=== PATIENT | male | born 1975 | race Native Hawaiian/Other Pacific Islander ===

== ENCOUNTER 2018-03-14 11:37 | Emergency (ER) | payer OTHER ==
[2018-03-14 11:59] VITALS: BP 122/81
[2018-03-14] MEDS ORDERED: BENTYL IM ONE (14:20)
[2018-03-14] MEDS ORDERED: NORCO 7.5/325 PO ONE (14:20)
--- NOTE | 2018-03-14 14:20 | Emergency Department Report ---
ED N/V/D HPI - General Chief complaint: Nausea/Vomiting/Diarrhea Stated complaint: DIARRHEA FOR 3 DAYS, STOMACH PAIN Time Seen by Provider: 03/14/18 14:01 Source: patient Mode of arrival: Ambulatory Limitations: No Limitations - History of Present Illness Initial comments: Patient is a 42-year-old gentleman who is presenting with diarrhea for approximately 3 days. Patient has some crampy diffuse abdominal discomfort. Patient denies any nausea fever. Patient and family ate a steak and shake several days ago he thinks this may be the cause however he is only when this feeling ill. Pt states the pain is crampy in nature and 6 out of 10. Denies any bleeding in his stool Description of Diarrhea: water Associated Abdominal Pain: Yes Location: diffuse Severity: moderate Pain Scale: 5 Quality: cramping Consistency: constant Improves with: none Worsens with: none - Related Data Previous Rx's Medication Instructions Recorded Last Taken Type Ciprofloxacin HCl [Cipro] 500 mg PO BID #14 tablet 03/14/18 Unknown Rx Dicyclomine [Bentyl] 20 mg PO QID #12 tablet 03/14/18 Unknown Rx Diphenoxylate/Atropine [Lomotil] 1 tab PO Q4H PRN #10 tablet 03/14/18 Unknown Rx metroNIDAZOLE [Flagyl] 500 mg PO Q12HR #14 tab 03/14/18 Unknown Rx traMADol [Ultram] 50 mg PO Q6HR PRN #10 tablet 03/14/18 Unknown Rx Allergies Allergy/AdvReac Type Severity Reaction Status Date / Time No Known Allergies Allergy Unverified 03/14/18 11:59 ED Review of Systems ROS: Stated complaint: DIARRHEA FOR 3 DAYS, STOMACH PAIN Other details as noted in HPI Comment: All other systems reviewed and negative ED Past Medical Hx - Past Medical History Previous Medical History?: No - Surgical History Past Surgical History?: No - Social History Smoking Status: Never Smoker Substance Use Type: None - Medications Home Medications: Home Medications Medication Instructions Recorded Confirmed Last Taken Type Ciprofloxacin HCl [Cipro] 500 mg PO BID #14 tablet 03/14/18 Unknown Rx Dicyclomine [Bentyl] 20 mg PO QID #12 tablet 03/14/18 Unknown Rx Diphenoxylate/Atropine [Lomotil] 1 tab PO Q4H PRN #10 tablet 03/14/18 Unknown Rx metroNIDAZOLE [Flagyl] 500 mg PO Q12HR #14 tab 03/14/18 Unknown Rx traMADol [Ultram] 50 mg PO Q6HR PRN #10 tablet 03/14/18 Unknown Rx ED Physical Exam - General Limitations: No Limitations General appearance: alert, in no apparent distress - Head Head exam: Present: atraumatic, normocephalic - Eye Eye exam: Present: normal appearance - ENT ENT exam: Present: mucous membranes moist - Neck Neck exam: Present: normal inspection - Respiratory Respiratory exam: Present: normal lung sounds bilaterally. Absent: respiratory distress, wheezes, rales, rhonchi - Cardiovascular Cardiovascular Exam: Present: regular rate, normal rhythm. Absent: systolic murmur, diastolic murmur, rubs, gallop - GI/Abdominal GI/Abdominal exam: Present: soft, normal bowel sounds. Absent: distended, tenderness, guarding, rebound - Rectal Rectal exam: Present: deferred - Extremities Exam Extremities exam: Present: normal inspection - Back Exam Back exam: Present: normal inspection - Neurological Exam Neurological exam: Present: alert, oriented X3 - Psychiatric Psychiatric exam: Present: normal affect, normal mood - Skin Skin exam: Present: warm, dry, intact, normal color. Absent: rash ED Course Vital Signs 03/14/18 11:56 Temperature 98.5 F Pulse Rate 82 Respiratory 18 Rate Blood Pressure 122/81 O2 Sat by Pulse 96 Oximetry ED Medical Decision Making - Medical Decision Making Patient's be treated as a presumed food poisoning. Patient given meds here for symptomatic relief be discharged home with meds. Critical care attestation.: If time is entered above; I have spent that time in minutes in the direct care of this critically ill patient, excluding procedure time. ED Disposition Clinical Impression: Food poisoning Qualifiers: Encounter type: initial encounter Injury intent: accidental or unintentional Qualified Code(s): T62.91XA - Toxic effect of unspecified noxious substance eaten as food, accidental (unintentional), initial encounter Disposition: - TO HOME OR SELFCARE Is pt being admited?: No Does the pt Need Aspirin: No Condition: Stable Instructions: Food Poisoning (ED) Referrals: PRIMARY CARE, [Primary Care Provider] - 3-5 Days
== END 2018-03-14 14:46 | disposition home or self-care (01) ==
LOC: ED 11:37
DX: T62.8X1A Toxic effect of other specified noxious substances eaten as food, accidental (unintentional), initial encounter (principal); Y92.89 Other specified places as the place of occurrence of the external cause
CPT/HCPCS: 96372; 99282; J0500

== ENCOUNTER 2019-06-22 20:17 | Emergency (ER) | payer SELFPAY ==
[2019-06-22] MEDS ORDERED: ONDANSETRON 4 MG/2 ML INJ ONE (20:55)
[2019-06-22] MEDS ORDERED: MORPHINE 4 MG/1 ML INJ ONE (20:56)
[2019-06-22] MEDS ORDERED: ONDANSETRON 4 MG/2 ML INJ IV ONE (21:00)
[2019-06-22] MEDS ORDERED: MORPHINE 4 MG/1 ML INJ IV ONE (21:00)
[2019-06-22] MEDS ORDERED: KETOROLAC 30 MG/1 ML INJ IV ONE (21:33)
--- NOTE | 2019-06-22 21:38 | Emergency Department Report ---
ED Male HPI - General Chief complaint: Urogenital-Male Stated complaint: TESTICLE PAIN Time Seen by Provider: 06/22/19 21:26 Source: patient Mode of arrival: Ambulatory Limitations: No Limitations - History of Present Illness Initial comments: Patient is 43 years old male with no significant past medical history. Patient presented to the ER complaining of bilateral testicular pain and swelling for the last several weeks. Patient stated that he also noticed a small swelling on the top of the right testicular area. Patient denied any fever or chills. No recent trauma. He also denied any dysuria or penile discharge. MD Complaint: testicle pain, testicle swelling -: week(s) Location: right testicle, left testicle Severity: moderate Severity scale (0 -10): 6 - Related Data Previous Rx's Medication Instructions Recorded Last Taken Type Ciprofloxacin HCl [Cipro] 500 mg PO BID #14 tablet 03/14/18 Unknown Rx Dicyclomine [Bentyl] 20 mg PO QID #12 tablet 03/14/18 Unknown Rx Diphenoxylate/Atropine [Lomotil] 1 tab PO Q4H PRN #10 tablet 03/14/18 Unknown Rx metroNIDAZOLE [Flagyl] 500 mg PO Q12HR #14 tab 03/14/18 Unknown Rx traMADol [Ultram] 50 mg PO Q6HR PRN #10 tablet 03/14/18 Unknown Rx Allergies Allergy/AdvReac Type Severity Reaction Status Date / Time No Known Allergies Allergy Verified 06/22/19 20:23 ED Review of Systems ROS: Stated complaint: TESTICLE PAIN Other details as noted in HPI Comment: All other systems reviewed and negative Constitutional: denies: chills, fever Respiratory: denies: cough, shortness of breath, SOB with exertion, SOB at rest Cardiovascular: denies: chest pain Gastrointestinal: denies: abdominal pain, nausea Genitourinary: testicular pain. denies: urgency, dysuria, frequency, hematuria, discharge Musculoskeletal: denies: back pain Neurological: denies: headache ED Past Medical Hx - Past Medical History Previous Medical History?: No - Surgical History Past Surgical History?: No - Social History Smoking Status: Never Smoker Substance Use Type: None - Medications Home Medications: Home Medications Medication Instructions Recorded Confirmed Last Taken Type Ciprofloxacin HCl [Cipro] 500 mg PO BID #14 tablet 03/14/18 Unknown Rx Dicyclomine [Bentyl] 20 mg PO QID #12 tablet 03/14/18 Unknown Rx Diphenoxylate/Atropine [Lomotil] 1 tab PO Q4H PRN #10 tablet 03/14/18 Unknown Rx metroNIDAZOLE [Flagyl] 500 mg PO Q12HR #14 tab 03/14/18 Unknown Rx traMADol [Ultram] 50 mg PO Q6HR PRN #10 tablet 03/14/18 Unknown Rx ED Physical Exam - General Limitations: No Limitations General appearance: alert, in no apparent distress - Head Head exam: Present: atraumatic, normocephalic, normal inspection - Eye Eye exam: Present: normal appearance, PERRL - ENT ENT exam: Present: normal exam, normal orophraynx, mucous membranes moist - Neck Neck exam: Present: normal inspection, full ROM. Absent: tenderness, meningismus, lymphadenopathy, thyromegaly - Respiratory Respiratory exam: Present: normal lung sounds bilaterally - Cardiovascular Cardiovascular Exam: Present: regular rate, normal rhythm, normal heart sounds - GI/Abdominal GI/Abdominal exam: Present: soft, normal bowel sounds. Absent: distended, tenderness, guarding, rebound, rigid, mass, bruit, pulsatile mass, hernia - Extremities Exam Extremities exam: Present: normal inspection, full ROM, normal capillary refill. Absent: tenderness, pedal edema, calf tenderness - Back Exam Back exam: Present: normal inspection, full ROM. Absent: CVA tenderness (R), CVA tenderness (L), muscle spasm, paraspinal tenderness, vertebral tenderness - Neurological Exam Neurological exam: Present: alert, oriented X3, CN II-XII intact, normal gait, reflexes normal - Psychiatric Psychiatric exam: Present: normal mood - Skin Skin exam: Present: warm, intact, normal color ED Course Vital Signs 06/22/19 06/22/19 06/22/19 20:23 20:46 21:00 Temperature 98.5 F Pulse Rate 66 60 70 Respiratory 18 14 Rate Blood Pressure 138/64 123/79 Blood Pressure [Right] O2 Sat by Pulse 98 97 Oximetry 06/22/19 06/22/19 06/22/19 21:01 21:15 21:30 Temperature 98.6 F Pulse Rate 58 L 54 L 52 L Respiratory 11 L 14 16 Rate Blood Pressure 123/79 114/78 Blood Pressure 123/71 [Right] O2 Sat by Pulse 99 96 97 Oximetry 06/22/19 06/22/19 06/22/19 21:45 22:00 22:15 Temperature Pulse Rate 54 L 47 L 56 L Respiratory 17 14 15 Rate Blood Pressure 114/78 116/69 116/69 Blood Pressure [Right] O2 Sat by Pulse 95 98 Oximetry 06/22/19 06/22/19 06/22/19 22:30 22:45 23:00 Temperature Pulse Rate 59 L 56 L 55 L Respiratory 17 17 14 Rate Blood Pressure 108/59 108/59 109/68 Blood Pressure [Right] O2 Sat by Pulse 96 Oximetry ED Medical Decision Making - Lab Data Result diagrams: 06/22/19 21:39 06/22/19 21:39 - Radiology Data Radiology results: report reviewed - Medical Decision Making Patient is 43 years old male with no significant past medical history. Patient presented to the ER complaining of bilateral testicular pain and swelling for the last several weeks. Patient stated that he also noticed a small swelling on the top of the right testicular area. Patient denied any fever or chills. No recent trauma. He also denied any dysuria or penile discharge. Labs reviewed and is unremarkable. Testicular ultrasound show epididymitis. Patient received Toradol and he stated that his symptoms much better. Patient advised to follow-up with his primary care physician in the next 2-3 days and to attend to the ER if symptoms are not improved. Critical care attestation.: If time is entered above; I have spent that time in minutes in the direct care of this critically ill patient, excluding procedure time. ED Disposition Clinical Impression: Testicular pain, Epididymitis Disposition: - TO HOME OR SELFCARE Is pt being admited?: No Condition: Stable Instructions: Epididymitis (ED) Referrals: [facility] [Provider Group] - 3-5 Days Forms: STI Treatment and Prevention
[2019-06-22 22:04] LABS: Basophils % (Auto) 0.4 % (0.0-1.8); Eosinophils # (Auto) 0.1 K/mm3 (0.0-0.4); Eosinophils % (Auto) 2.2 % (0.0-4.3); Hematocrit 42.6 % (35.5-45.6); Hemoglobin 14.6 gm/dl (11.8-15.2); Lymphocytes # (Auto) 1.7 K/mm3 (1.2-5.4); Lymphocytes % (Auto) 28.5 % (13.4-35.0); Mean Corpuscular HGB Conc 34 % (32-34); Mean Corpuscular Volume 85 fl (84-94); Monocytes # (Auto) 0.6 K/mm3 (0.0-0.8); Monocytes % (Auto) 9.8 % (0.0-7.3); Platelet Count 184 K/mm3 (140-440); Red Blood Count 5.04 M/mm3 (3.65-5.03); Red Cell Distribution Width 13.8 % (13.2-15.2)
[2019-06-22 22:24] LABS: Alanine Aminotransferase 14 units/L (7-56); Albumin 3.4 g/dL (3.9-5); BUN/Creatinine Ratio 12; Blood Urea Nitrogen 13 mg/dL (9-20); Calcium 8.1 mg/dL (8.4-10.2); Hemolysis Index 15
[2019-06-22 22:31] LABS: Bilirubin,Direct < 0.2 mg/dL (0-0.2)
[2019-06-22 23:02] VITALS: BP 109/68
--- NOTE | 2019-06-22 23:07 | Ultrasound Report ---
SCROTAL ULTRASOUND WITH DOPPLER HISTORY: bilateral testicular pain and swelling. COMPARISON: None. TECHNIQUE: Grayscale, color and spectral Doppler images were obtained of the scrotum. FINDINGS: RIGHT: Right testicle: Microlithiasis is noted. No mass. Right testicular size: 4.8 x 2.6 x 3.9 cm. Right epididymis: An epididymal head cyst measuring up to 1.4 cm. LEFT: Left testicle: Microlithiasis is noted. No mass. Left testicular size: 3.8 x 2.1 x 4.6 cm. Left epididymis: The left epididymal head is slightly enlarged and heterogeneous. Additional findings: None. IMPRESSION: 1. Left epididymal head slightly enlarged and heterogeneous which may be seen in the setting of epidi dymitis. 2. Right epididymal head cyst. 2. Bilateral testicular microlithiasis. Consider surveillance testicular ultrasound in one year. 3. Normal, symmetric flow in both testicles. Signer Name: Sissy Dickinson MD Signed: 06/22/2019 11:03 PM Workstation Name: [id number]
[2019-06-22 23:10] LABS: Bilirubin,Urine NEG (Negative); Blood,Urine NEG (Negative); Color,Urine Yellow (Yellow); Mucus,Urine FEW /HPF; Protein,Urine <15 mg/dL mg/dL (Negative); Urobilinogen,Urine < 2.0 mg/dL (<2.0); WBC,Urine < 1.0 /HPF (0.0-6.0)
== END 2019-06-22 23:54 | disposition home or self-care (01) ==
LOC: ED 20:17
DX: N50.811 Right testicular pain (principal); N50.812 Left testicular pain; N45.1 Epididymitis; Z79.899 Other long term (current) drug therapy
CPT/HCPCS: 36415; 80048; 80076; 81001; 85025; 93975; 96374; 96375; 99284; J1885; J2270; J2405